=== PATIENT | male | born 1955 | race Caucasian/White ===

== ENCOUNTER 2016-04-05 12:04 | Emergency (ER) | payer BC, OTHER ==
--- NOTE | 2016-04-05 12:43 | UC ---
Complaint Male HPI - HPI Summary HPI Summary: complaint of burning with urination that started approx 5 daysa fgo increased frequency and urgency with urination since then symptoms sytarted to resoved and then today the symptoms have returned denies back pain, abdmonial pain, fever and chills - History of Current Complaint Stated Complaint: UTI COMPLAINT Time Seen by Provider: 04/05/16 12:37 Hx Obtained From: Patient - Allergies/Home Medications Allergies/Adverse Reactions: Allergies Allergy/AdvReac Type Severity Reaction Status Date / Time No Known Allergies Allergy Verified 07/15/13 08:48 PMH/Surg Hx/FS Hx/Imm Hx Previously Healthy: Yes Endocrine History Of: Reports: Diabetes - TYPE 2 Denies: Thyroid Disease Cardiovascular History Of: Reports: Hypertension Denies: Cardiac Disorders Respiratory History Of: Denies: COPD, Asthma GI/ History Of: Denies: Ulcer Psychological History Of: Reports: Anxiety - Surgical History Surgical History: Yes Surgery Procedure, Year, and Place: Mastoidectomy. Tonsillectomy - Family History Known Family History: Negative: Cardiac Disease, Hypertension, Diabetes - Social History Occupation: Employed Full-time Lives: With Family Alcohol Use: Daily Alcohol Amount: 2-3 DAILY Substance Use Type: None Smoking Status (MU): Former Smoker Amount Used/How Often: 1/2 ppd When Did the Patient Quit Smoking/Using Tobacco: MAY 2015 Review of Systems Constitutional: Negative Skin: Negative Eyes: Negative ENT: Negative Respiratory: Negative Cardiovascular: Negative Gastrointestinal: Negative Genitourinary: Dysuria, Frequency, Urgency Motor: Negative Neurovascular: Negative Musculoskeletal: Negative Neurological: Negative Psychological: Negative All Other Systems Reviewed And Are Negative: Yes Physical Exam Triage Information Reviewed: Yes Appearance: No Pain Distress, Well-Nourished Vital Signs Reviewed: Yes Eyes: Positive: Conjunctiva Clear ENT: Positive: Pharynx normal, TMs normal. Negative: Nasal congestion Neck: Positive: No Lymphadenopathy Respiratory: Positive: Lungs clear, Normal breath sounds, No respiratory distress Cardiovascular: Positive: RRR, No Murmur, Pulses Normal Abdomen Description: Positive: Nontender, No Organomegaly, Soft. Negative: CVA Tenderness (R), CVA Tenderness (L), Distended, Guarding Bowel Sounds: Positive: Present Musculoskeletal: Positive: No Edema Neurological: Positive: Alert Psychological Exam: Normal Skin Exam: Normal Complaint Male Course/Dx - Course Course Of Treatment: exam completed. will treat for UTI with urology followup - Differential Dx/Diagnosis Differential Diagnosis/HQI/PQRI: Prostatitis, Urinary Tract Infection Provider Diagnoses: uti Discharge - Discharge Plan Condition: Stable Disposition: HOME Prescriptions: Sulfamethox/Trimethoprim DS* [Bactrim DS 800/160 TAB*] 1 tab PO BID #10 tab Patient Education Materials: Urinary Tract Infection in Men (ED) Referrals: Raul White MD [Primary Care Provider] - Dmitry Ignacio MD [Medical Doctor] - Additional Instructions: Start antibiotic as directed Increase fluids and rest Please contact urologist fr followup treatment and evaluation. Take acetaminophen or ibuprofen for fever or pain Please review your discharge instructions. If your symptoms do not improve please call your primary care provider or return to urgent care
[2016-04-05 12:53] VITALS: BP 155/84
== END 2016-04-05 13:08 | disposition home or self-care (01) ==
LOC: UCEAST 12:04
DX: N39.0 Urinary tract infection, site not specified (principal); Z87.891 Personal history of nicotine dependence
CPT/HCPCS: 81002; 87086; 99212; G0463

== ENCOUNTER 2016-04-16 13:10 | Emergency (ER) | payer OTHER ==
[2016-04-16 13:49] VITALS: BP 164/78
--- NOTE | 2016-04-16 15:29 | UC ---
Larisa Osorio Alok, scribed for Alesha Middleton DO on 04/16/16 at 1446 . Complaint Male HPI - HPI Summary HPI Summary: 60 y/o male with previous UTI presents to the UC and c/o a sensation on the tip of his urethra and into his testicle. The sensation described as a awareness rather than discomfort, "It does hurt but I am aware of it, I am usually not aware of anything down there unless I am deliberately placing my focus there." This awareness has been present for 2 days. Pt was last diagnosed with a UTI two weeks prior, and states he may have missed taking one of the last medications for his previous UTI two days ago. Pt also denies any fever, nausea , chills, diaphoresis, SOB, cough, CORNELIUS, rash, dysuria or change in frequency or urine smell/color. Pt also denies any scrotal or penile swelling, tenderness or discharge. - History of Current Complaint Chief Complaint: UCGU Stated Complaint: CONTINUED UTI Time Seen by Provider: 04/16/16 14:36 Hx Obtained From: Patient Onset/Duration: Gradual Onset, Lasting Days, Still Present Timing: Constant Severity Initially: Mild Severity Currently: None Pain Intensity: 0 Radiates to: Right testicle Aggravating Factor(s): Nothing Alleviating Factor(s): Nothing Associated Signs And Symptoms: Negative: Diaphoresis, Back Pain, Fever, Dysuria , Nausea, Vomiting(# Of Episodes =), Penile Swelling, Penile Discharge - Risk Factors Testicular Torsion: Negative - Allergies/Home Medications Allergies/Adverse Reactions: Allergies Allergy/AdvReac Type Severity Reaction Status Date / Time No Known Allergies Allergy Verified 04/16/16 13:41 PMH/Surg Hx/FS Hx/Imm Hx Endocrine History Of: Reports: Diabetes - TYPE 2 Denies: Thyroid Disease Cardiovascular History Of: Reports: Hypertension Denies: Cardiac Disorders Respiratory History Of: Denies: COPD, Asthma GI/ History Of: Denies: Ulcer Psychological History Of: Reports: Anxiety - Surgical History Surgical History: Yes Surgery Procedure, Year, and Place: Mastoidectomy. Tonsillectomy. Vasectomy - Family History Known Family History: Negative: Cardiac Disease, Hypertension, Diabetes - Social History Occupation: Employed Full-time Lives: With Family Alcohol Use: Daily Alcohol Amount: 2-3 Beer Substance Use Type: None Smoking Status (MU): Heavy Every Day Tobacco Smoker Type: Cigarettes Amount Used/How Often: 1/2 ppd Have You Smoked in the Last Year: Yes When Did the Patient Quit Smoking/Using Tobacco: MAY 2015 Household Exposure Type: Cigarettes Cessation Counseling: Patient Advised to Stop Review of Systems Constitutional: Negative Skin: Negative Eyes: Negative ENT: Negative Respiratory: Negative Cardiovascular: Negative Gastrointestinal: Negative Genitourinary: Negative Motor: Negative Neurovascular: Negative Musculoskeletal: Negative Neurological: Negative Psychological: Negative All Other Systems Reviewed And Are Negative: Yes Physical Exam Triage Information Reviewed: Yes Appearance: Well-Appearing, No Pain Distress, Well-Nourished Vital Signs: Initial Vital Signs Temp 97.8 F 04/16/16 13:44 Pulse 78 04/16/16 13:44 Resp 12 04/16/16 13:44 BP 164/78 04/16/16 13:44 Pulse Ox 97 04/16/16 13:44 Vital Signs Reviewed: Yes Eyes: Positive: Conjunctiva Clear. Negative: Discharge ENT: Positive: Hearing grossly normal Neck: Positive: Supple, Nontender Respiratory: Positive: Lungs clear, Normal breath sounds, No respiratory distress, No accessory muscle use Cardiovascular: Positive: RRR, No Murmur Abdomen Description: Positive: Nontender, Soft. Negative: CVA Tenderness (R), CVA Tenderness (L), Distended, Guarding Bowel Sounds: Positive: Present Musculoskeletal Exam: Normal Neurological: Positive: Alert, Muscle Tone Normal Psychological Exam: Normal Psychological: Positive: Age Appropriate Behavior Skin Exam: Normal Skin: Positive: Other - Warm, dry, normal color - Additional Comments No penile discharge, swelling, redness, calor. No testicular redness, calor, swelling, tenderness to palpation bilaterally, no masses. Complaint Male Course/Dx - Differential Dx/Diagnosis Differential Diagnosis/HQI/PQRI: Epididymitis, Urinary Tract Infection Provider Diagnoses: hematuria Discharge - Discharge Plan Condition: Stable Disposition: HOME Patient Education Materials: Hematuria (ED) Referrals: Raul White MD [Primary Care Provider] - (Follow up in 3-5 days or sooner if symptoms worsen or new symptoms develop.) Additional Instructions: The urinalysis revealed hematuria or blood in your urine at bot, this visit and the last. However, there was no evidence of infection found in the culture. We are sending in the urine from this visit for another culture to look for infection. The results should be available in about 2 days. We will hold off on further treatment at this time. We do recommend that you follow up with your PCP early this coming week for evaluation of the hematuria. The documentation as recorded by the Larisa ruiz Alok accurately reflects the service I personally performed and the decisions made by me, Alesha Middleton DO.
== END 2016-04-16 15:11 | disposition home or self-care (01) ==
LOC: UCEAST 13:10
DX: R31.9 Hematuria, unspecified (principal); Z87.440 Personal history of urinary (tract) infections; F17.210 Nicotine dependence, cigarettes, uncomplicated
CPT/HCPCS: 81002; 99212; G0463

== ENCOUNTER 2016-10-07 17:13 | Emergency (ER) | payer OTHER ==
[2016-10-07 17:22] VITALS: BP 155/95
--- NOTE | 2016-10-07 18:57 | UC ---
Throat Pain/Nasal Kun HPI - HPI Summary HPI Summary: [address] AND LEFT EAR PAIN. HAS SUBJECTIVE FEVER AND CHILLS. MILD COUGH. NO N/V. - History of Current Complaint Chief Complaint: UCRespiratory Stated Complaint: SORE THROAT EAR PAIN Time Seen by Provider: 10/07/16 18:28 Hx Obtained From: Patient Onset/Duration: Gradual Onset, Lasting Days, Still Present Pain Intensity: 8 Pain Scale Used: 0-10 Numeric Cough: Nonproductive Associated Signs & Symptoms: Positive: Fever - Allergies/Home Medications Allergies/Adverse Reactions: Allergies Allergy/AdvReac Type Severity Reaction Status Date / Time No Known Allergies Allergy Verified 10/07/16 17:22 PMH/Surg Hx/FS Hx/Imm Hx Endocrine History: Diabetes Cardiovascular History: Hypertension - Surgical History Surgical History: Yes Surgery Procedure, Year, and Place: Mastoidectomy. Tonsillectomy. Vasectomy - Family History Known Family History: Negative: Cardiac Disease, Hypertension, Diabetes - Social History Alcohol Use: Daily Alcohol Amount: 2-3 Beer Substance Use Type: None Smoking Status (MU): Former Smoker Type: Cigarettes Amount Used/How Often: 1/2 ppd Length of Time of Smoking/Using Tobacco: 4 days Have You Smoked in the Last Year: Yes When Did the Patient Quit Smoking/Using Tobacco: MAY 2015 Household Exposure Type: Cigarettes Review of Systems Constitutional: Fever, Chills ENT: Sore Throat, Ear Ache Respiratory: Cough Cardiovascular: Negative Gastrointestinal: Negative All Other Systems Reviewed And Are Negative: Yes Physical Exam Triage Information Reviewed: Yes Appearance: Well-Appearing, No Pain Distress, Well-Nourished Vital Signs: Initial Vital Signs Temp 98.2 F 10/07/16 17:16 Pulse 81 10/07/16 17:16 Resp 18 10/07/16 17:16 BP 155/95 10/07/16 17:16 Pulse Ox 98 10/07/16 17:16 Vital Signs Reviewed: Yes Eyes: Positive: Conjunctiva Clear ENT: Positive: Hearing grossly normal, Pharynx normal, Other: - RIGHT TM WITH SCLEROSIS. LEFT TM DULL, ERYTHEMATOUS Neck: Positive: Supple, Nontender, No Lymphadenopathy Respiratory Exam: Normal Cardiovascular Exam: Normal Abdomen Description: Positive: Soft Musculoskeletal: Positive: No Edema Neurological: Positive: Alert Psychological: Positive: Age Appropriate Behavior Skin: Negative: rashes Diagnostics - Laboratory Diagnostic Studies Completed/Ordered: RAPID STREP NEGATIVE Throat Pain/Nasal Course/Dx - Differential Dx/Diagnosis Provider Diagnoses: LEFT AOM Discharge - Discharge Plan Condition: Stable Disposition: HOME Prescriptions: Amoxicillin PO (*) [Amoxicillin 500 MG CAP*] 1,000 mg PO Q12H #40 cap Patient Education Materials: Otitis Media (ED) Referrals: Raul White MD [Primary Care Provider] - If Needed Additional Instructions: RAPID STREP NEGATIVE. YOU HAVE A CLEAR LEFT SIDED EAR INFECTION. TAKE THE ANTIBIOTICS FOR THE FULL 10 DAYS. FOLLOW-UP WITH YOUR PCP IF YOU RE NOT IMPROVING EXPECTED.
== END 2016-10-07 19:12 | disposition home or self-care (01) ==
LOC: UCEAST 17:13
DX: H66.92 Otitis media, unspecified, left ear (principal); J02.9 Acute pharyngitis, unspecified; R50.9 Fever, unspecified; E11.9 Type 2 diabetes mellitus without complications; I10 Essential (primary) hypertension; Z87.891 Personal history of nicotine dependence
CPT/HCPCS: 87651; 99212; G0463

== ENCOUNTER 2016-10-25 10:11 | Emergency (ER) | payer OTHER | END 2016-10-25 10:41 | disposition left against medical advice (07) | LOC: UCEAST 10:11 | DX: R07.0 Pain in throat (principal); Z53.21 Procedure and treatment not carried out due to patient leaving prior to being seen by health care provider ==

== ENCOUNTER 2016-12-07 11:40 | Emergency (ER) | payer OTHER ==
[2016-12-07 13:58] VITALS: BP 143/79
--- NOTE | 2016-12-07 14:20 | UC ---
Eye Complaint HPI - HPI Summary HPI Summary: Patient presents with complaints of right eye drainage, redness, and irritation x three days. He also states he has a sty on the lower lid, with swelling of the lower lid and below the eye. He denies any injury or trauma, or eye pain with or without movement. - History of Current Complaint Chief Complaint: UCEye Stated Complaint: PINK EYE Time Seen by Provider: 12/07/16 13:58 Hx Obtained From: Patient Onset/Duration: Gradual Onset, Lasting Days Timing: Constant Severity Initially: Mild Severity Currently: Moderate Character: Dull Aggravating Factor(s): Blinking Alleviating Factor(s): Nothing Associated Signs And Symptoms: Positive: Negative - Risk Factors Penetrating Injury Risk Factor: Negative Acute Glaucoma Risk Factors: Negative - Allergies/Home Medications Allergies/Adverse Reactions: Allergies Allergy/AdvReac Type Severity Reaction Status Date / Time No Known Allergies Allergy Verified 12/07/16 13:58 PMH/Surg Hx/FS Hx/Imm Hx Previously Healthy: Yes - Surgical History Surgical History: Yes Surgery Procedure, Year, and Place: Mastoidectomy. Tonsillectomy. Vasectomy - Family History Known Family History: Negative: Cardiac Disease, Hypertension, Diabetes - Social History Occupation: Employed Full-time Lives: Alone Alcohol Use: None Alcohol Amount: 2-3 Beer Substance Use Type: None Smoking Status (MU): Former Smoker Type: Cigarettes Amount Used/How Often: 1/2 ppd Length of Time of Smoking/Using Tobacco: 4 days Have You Smoked in the Last Year: Yes When Did the Patient Quit Smoking/Using Tobacco: MAY 2015 Household Exposure Type: Cigarettes Review of Systems Constitutional: Negative Skin: Negative Eyes: Drainage, Eye Redness ENT: Negative Respiratory: Negative Cardiovascular: Negative Gastrointestinal: Negative Genitourinary: Negative Motor: Negative Neurovascular: Negative Musculoskeletal: Negative Neurological: Negative Psychological: Negative All Other Systems Reviewed And Are Negative: Yes Physical Exam Triage Information Reviewed: Yes Appearance: Well-Appearing Vital Signs: Initial Vital Signs Temp 99.1 F 12/07/16 13:55 Pulse 79 12/07/16 13:55 Resp 18 12/07/16 13:55 BP 143/79 12/07/16 13:55 Pulse Ox 98 12/07/16 13:55 Vital Signs Reviewed: Yes Eyes: Positive: Conjunctiva Inflamed, Discharge ENT Exam: Normal Neck exam: Normal Neck: Positive: 1 Respiratory Exam: Normal Cardiovascular Exam: Normal Abdominal Exam: Normal Musculoskeletal Exam: Normal Neurological Exam: Normal Psychological Exam: Normal Skin Exam: Normal Eye Complaint Course/Dx - Course Course Of Treatment: Patient presents with conjunctivitis and was treated with polymxin/trim opth 1 gtt right eye q 3 hours x 7 days, and follow up within two days with Dr. Mcgraw. - Differential Dx/Diagnosis Differential Diagnosis/HQI/PQRI: Conjunctivitis Provider Diagnoses: conjunctivitis Discharge - Discharge Plan Condition: Stable Disposition: HOME Prescriptions: Polymyx/Trimethoprim OPTH* [Polytrim OPHTH*] 1 drop RIGHT EYE Q3H #1 btl Patient Education Materials: Conjunctivitis (ED) Referrals: Raul White MD [Primary Care Provider] - Jarod Haley MD [Medical Doctor] - Additional Instructions: follow up within two days with dr mcgraw.
== END 2016-12-07 14:10 | disposition home or self-care (01) ==
LOC: UCEAST 11:40
DX: H10.9 Unspecified conjunctivitis (principal); Z87.891 Personal history of nicotine dependence
CPT/HCPCS: 99212; G0463

== ENCOUNTER 2017-08-22 07:39 | Emergency (ER) | payer OTHER ==
[2017-08-22 08:03] VITALS: BP 135/79
--- NOTE | 2017-08-22 14:04 | UC ---
Red Osorio Natalie, scribed for Peyton Marie MD on 08/22/17 at 1106 . General HPI - HPI Summary HPI Summary: The patient is a 62 y/o M presenting to [facility] c/o body aches, fevers, and chills for the last three days. He additionally c/o nasal discharge, sore throat, nonproductive cough. He denies CP, nausea, and vomiting. The pain is rated 6/10 in severity. He has also been having dental pain in the upper left side of his mouth, where he is supposed to get teeth removed on 08/26/17. For the toothache, he is prescribed amoxicillin, which he has been taking since 08/17/17. The pills had melted in his car a few days ago, and he has still been taking them, as well as Ibuprofen. He takes Prozac and Lisinopril. He has hx of post nasal drip and sepsis. He has surgical hx of tonsillectomy and vasectomy. He has seasonal allergies. - History of Current Complaint Chief Complaint: UCGeneralIllness Stated Complaint: BODYACHES FEVER DENTAL PAIN Time Seen by Provider: 08/22/17 08:37 Hx Obtained From: Patient Onset/Duration: Sudden Onset, Lasting Days, Still Present Timing: Constant Onset Severity: Mild Current Severity: Moderate Pain Intensity: 6 Alleviating: Amoxicillin, Ibuprofen Associated Signs & Symptoms: Positive: Cough - nonproductive, Fever, Other - POSITIVE: chills, sore throat, nasal discharge, body aches; NEGATIVE: CP. Negative: Nausea, Vomiting - Allergy/Home Medications Allergies/Adverse Reactions: Allergies Allergy/AdvReac Type Severity Reaction Status Date / Time seasonal Allergy Congestion Uncoded 08/22/17 08:03 Home Medications: Home Medications Fluticasone NASAL SPRAY 50MCG* [Flonase NASAL SPRAY 50MCG*] 1 spray INH ONCE PRN 08/22/17 [History Confirmed 08/22/17] Loratadine [Claritin] 1 tab PO DAILY 08/22/17 [History Confirmed 08/22/17] PMH/Surg Hx/FS Hx/Imm Hx - Additional Past Medical History Additional PMH: POSITIVE: sepsis Other Endocrine History: negative Other Cardiovascular History: negative Other Respiratory History: POSITIVE: post nasal drip; NEGATIVE: asthma Other GI/ History: negative Other Neurological History: negative Other Psychological History: negative Other Cancer History: negative - Surgical History Surgical History: Yes Surgery Procedure, Year, and Place: Mastoidectomy. Tonsillectomy. Vasectomy - Family History Known Family History: Negative: Cardiac Disease, Hypertension, Diabetes - Social History Alcohol Use: Occasionally Alcohol Amount: 2-3 Beer Substance Use Type: None Smoking Status (MU): Former Smoker Type: Cigarettes Amount Used/How Often: 1/2 ppd Length of Time of Smoking/Using Tobacco: 4 days Have You Smoked in the Last Year: Yes When Did the Patient Quit Smoking/Using Tobacco: MAY 2015 Household Exposure Type: Cigarettes Review of Systems Constitutional: Fever, Chills, Other - POSITIVE: body aches ENT: Dental Pain - in upper left molar, Sore Throat, Nasal Discharge Respiratory: Cough - nonproductive Cardiovascular: Other - NEGATIVE: CP Gastrointestinal: Other - NEGATIVE: nausea, vomiting Genitourinary: Negative Motor: Negative Neurovascular: Negative Musculoskeletal: Negative Neurological: Negative Psychological: Negative Is Patient Immunocompromised?: No All Other Systems Reviewed And Are Negative: Yes Physical Exam - Summary Physical Exam Summary: Appearance: Well-Appearing, No Pain Distress, Well-Nourished Eyes: conjunctiva clear, no discharge ENT: Hearing grossly normal, no muffled/hoarse voice, right ear tympanoplasty without changes, mild pharyngeal erythema Dental Exam: no dental abscess, dental carries noted in the left upper first molar Neck: Normal, Supple Respiratory/Lung Sounds: Lungs clear, Normal breath sounds, No respiratory distress, No accessory muscle use Cardiovascular: RRR, No murmur Abdomen: Nontender, Soft, no guarding, not distended Bowel Sounds: Present Musculoskeletal: Normal Neurological: Alert, muscle tone normal Psychiatric:Normal, age appropriate behavior Skin: Normal, Warm, Dry, Normal color Triage Information Reviewed: Yes Vital Signs: Initial Vital Signs Temp 98.2 F 08/22/17 07:57 Pulse 89 08/22/17 07:57 Resp 18 08/22/17 07:57 BP 135/79 08/22/17 07:57 Pulse Ox 98 08/22/17 07:57 Vital Signs Reviewed: Yes Course/Dx - Course Course Of Treatment: The patient is a 62 y/o M presenting to [facility] c/o body aches , fever, chills, and nasal discharge for the last three days. He also has a sore throat and a nonproductive cough. He has been having dental pain, which is being treated with amoxicillin. The amoxicillin has melted in the heat, but he has still been taking the pills, and has also been taking Ibuprofen. He has a hx of sepsis and post nasal drip. He is getting four teeth removed on 08/26/17. Medications reviewed. Allergies noted. [facility] carries were noted in his upper left first molar. Patient will be discharged home with instructions for tootache. He is prescribed Amoxicillin. He will keep his appointment with his dentist on 08/26/17. Patient is agreeable with this plan. - Differential Dx - Multi-Symptom Provider Diagnoses: toothache. dental caries Discharge - Sign-Out/Discharge Documenting (check all that apply): Discharge/Admit/Transfer - Pt will be discharged home. - Discharge Plan Condition: Stable Disposition: HOME Prescriptions: Amoxicillin PO (*) [Amoxicillin 500 MG CAP*] 500 mg PO TID 10 Days #30 cap Patient Education Materials: Toothache (ED) Referrals: Raul White MD [Primary Care Provider] - Additional Instructions: Start taking antibiotics as suggested , has been prescribed to the pharmacy . Follow up with your dentist as scheduled next . Return to Urgent care / ER if symptoms get worse. - Billing Disposition and Condition Condition: STABLE Disposition: Home The documentation as recorded by the Red ruiz Natalie accurately reflects the service I personally performed and the decisions made by me, Peyton Marie MD.
== END 2017-08-22 09:03 | disposition home or self-care (01) ==
LOC: UCEAST 07:39
DX: K02.9 Dental caries, unspecified (principal); K08.89 Other specified disorders of teeth and supporting structures; J34.89 Other specified disorders of nose and nasal sinuses; R50.9 Fever, unspecified; R51 Headache; R05 Cough; J02.9 Acute pharyngitis, unspecified; Z91.09 Other allergy status, other than to drugs and biological substances; Z87.891 Personal history of nicotine dependence
CPT/HCPCS: 99212; G0463

== ENCOUNTER → 2017-12-22 09:18 | Day surgery (SDC) | payer OTHER ==
[~2017-12-22 09:18] MED LIST: Buffered Lidocaine 0.9% SYRIN* 5 ML/SYR SYRINGE INTRADERM ONE; Cisatracurium* 2 MG/ML MDV 5 ML ONE; Dexamethasone IV* 4 MG/ML 1 ML (4 MG) ONE; DiMENhydriNATE IV* 50 MG/ML VIAL IV PUSH PRN; Famotidine IV* 10 MG/ML 2 ML (20 mg) IV ONE; Famotidine IV* 10 MG/ML 2 ML (20 mg) ONE; Gelatin ADSORBABLE (OPHTH)* OPHTH.FILM ONE; Gelfoam 12-7 ADSORBABL SPONGE* 1 EA SPONGE ONE; Gelfoam Sponge SIZE 100* SPONGE ONE; KETAMINE HCL* 50 MG/ML 10 ML VIAL ONE; Labetalol IV* 5 MG/ML 20 ML VIAL ONE; Lidocaine 2% (CARDIAC)* 20 MG/ML 5 ML SYRINGE (100 MG) ONE; Lidocaine 2% EPI 1:200000 MPF*10-20 ML VIAL ONE; Lidocaine 2% PF * 5 ML VIAL ONE; Midazolam* 1 MG/ML 5 ML VIAL (5 MG) ONE; Naloxone* 0.4 MG/ML 1 ML VIAL IV PRN; Ondansetron INJ* 2 MG/ML VIAL IV PRN; Ondansetron INJ* 2 MG/ML VIAL ONE; Oxymetazoline 0.05% NASAL SPR* 15 ML BTL ONE; PROCHLORPERAZINE INJ 5 MG/ML 2 ML VIAL IV PRN; Propofol* 10 MG/ML 20 ML BTL IV PUSH ONE; Scopolamine 1.5 mg* PATCH ONE; Scopolamine 1.5 mg* PATCH TRANSDERM ONE; Scopolamine PATCH Remove* 1 NOTE MISC PATCH OFF ONE; Triamcinolone Acetonide* 40 MG/ML 1 ML VIAL ONE; fentaNYL* 50 MCG/ML 2 ML VIAL (100 MCG VIAL) IV PRN; fentaNYL* 50 MCG/ML 2 ML VIAL (100 MCG VIAL) ONE
[2017-12-22 14:16] VITALS: BP 129/76
--- NOTE | 2017-12-23 03:39 | OP ---
DATE OF OPERATION: 12/22/17 - [facility] DATE OF : 55 SURGEON: Aubrey Covarrubias MD PRE-OPERATIVE DIAGNOSIS: Chronic sinusitis. POST-OPERATIVE DIAGNOSIS: Chronic sinusitis. OPERATIVE PROCEDURE: Bilateral video endoscopic maxillary antrostomy, bilateral anterior ethmoidectomy, bilateral posterior ethmoidectomy, left frontal sinus dilatation, left sphenoid sinus dilatation. BRIEF HISTORY: This 62-year-old with chronic symptoms of sinusitis with significant symptoms of purulent rhinorrhea, opacification of his maxillary ethmoid and frontal sinus on the left and splenoid sinus on the left side. The patient failed medical management including prolonged courses of steroid and oral antibiotics. DESCRIPTION OF PROCEDURE: The patient was taken to the operating room. General anesthetic was given. The patient was intubated. Nose was decongested with Afrin- placed pledgets on both sides. A 0-degree telescope, 30-degree telescope, and other endoscopic sinus surgery instruments including the microshaver and the balloon sinuplasty instruments were utilized. Next, we turned our attention to the sinus on the right side. The uncinate process was identified and infiltrated with 2% lidocaine with epinephrine. Ethmoidal bulla , which was josiane bullosa type was infiltrated. Resection of the josiane bullosa was carried out with microshaver. The antrostomy was then enlarged after resecting out the uncinate process and examining the antrum, widening it with sacrificing some of the fontanelle. The ethmoidal bulla was then entered and then carefully coursed posteriorly through the into the posterior skull and superiorly over towards the skull base laterally towards lamina papyracea. Once adequate resection was carried out, the area was packed with Gelfilm and Gelfoam. We turned our attention to the left side. Here again, the uncinate process was identified and infiltrated. It was hyperplastic and significantly polypoidal, which was microshaved away and the antral opening with again hyperplastic mucosa with closure. As soon as the antrum was entered, copious amounts of purulent material was noted. This was sent for cultures both aerobic and anaerobic. Careful resection toward the posterior wall was carried out to lateral sinus. This enlarged the antrostomy, some of the hyperplastic mucosa was removed. Then the ethmoidectomy was carried out. The ethmoidal bulla was resected out. I used the balloon sinuplasty instruments to guide my way through to the nasofrontal duct area and then dilated the nasofrontal duct with a 7-mm balloon at 12 bar pressure. Severe passes were created. I then completed the ethmoidectomy going posteriorly towards the skull base, then again coursing from the skull base working backwards to the nasofrontal duct area, laterally to the lamina papyracea. When I felt enough resection was carried out of this area, I inserted the wire into the sphenoid area and dilated this. Copious irrigation to sphenoid is carried out on the left side. Once this was all done, the area was packed with Gelfilm. I felt that the hyperplastic mucosa and the amount of pus that was still from the left sinus, this was copiously irrigated. I packed this area with Iodoform-soaked gauze. A Mathew pack was then placed for both securing the Iodoform gauze and also for hemostasis. The patient was then awakened, extubated and sent to recovery room in stable condition. Instrument and sponge counts were correct. Blood loss, minimal. [id number]/[facility] #: [id number] [facility]ITALRoberto
== END | disposition home or self-care (01) ==
LOC: OR 09:18
PROVIDERS: ATTEND Otolaryngology
DX: J32.4 Chronic pansinusitis (principal); H65.00 Acute serous otitis media, unspecified ear; I10 Essential (primary) hypertension; E78.00 Pure hypercholesterolemia, unspecified
CPT/HCPCS: 87070; 87073; 87076; 87077; 87186; 87205; 88305; A9270-GY; J1100; J2250; J2405; J2704; J3010; J3301